=== PATIENT | male | born 1945 | race African-American/Black ===

== ENCOUNTER 2016-10-17 17:50 | Emergency (ER) | payer OTHER, MEDICARE ==
--- NOTE | ~2016-10-17 | CR63 ---
[facility] A Service of [facility] [place] [facility] RADIOLOGY TEXT RESULTS PATIENT: MONISHA DELONG SR LOCATION: [facility] : 49 UNIT #: [id number] AGE: [address]: Jamie Ruelas MD SEX: M ORDER DR: [id number] [place], [place] [address] [id number] MR#: [id number] Acc #: [id number] NAME: MONISHA DELONG : 1945 SEX: M STUDY DATE/TIME: 10/17/2016 18:29 UNIT: [facility] ROOM: STUDY DESCRIPTION: CR Chest 2 View Attending Physician: Jamie Ruelas M.D. Ordering Physician: Jamie Ruelas M.D. Primary Care Physician: No Primary Care Physician MEDICAL IMAGING REPORT This report is preliminary unless electronic signature is present EXAM 2-view chest 10/17/2016 INDICATIONS 71-year-old male with a cough and congestion symptoms began a week ago. TECHNIQUE 2 views of the chest were performed. No comparisons. FINDINGS Cardiac silhouette is within normal limits. The vascularity is unremarkable. Lungs are clear. No effusion or pneumothorax. Mild thoracic spondylosis. IMPRESSION 1. Negative chest. We have no comparisons. Dictated by... Thierno Modi M.D. THIS IS AN ELECTRONICALLY VERIFIED REPORT Thierno Modi M.D. at 10/17/2016 7:55 PM EDUARDO/vera TD: 10/17/2016 19:32 JOB #: [id number] MEDICAL IMAGING REPORT Page 1 of 1 COPY
== END 2016-10-17 19:37 | disposition home or self-care (01) ==
LOC: CED 17:50
DX: R05 Cough (principal)
CPT/HCPCS: 71020; 99283